=== PATIENT | male | born 1970 | race Caucasian/White ===

== ENCOUNTER 2019-06-27 17:43 | Inpatient (IN) | payer MEDICAID, OTHER ==
[2019-06-27 23:24] LABS: ADD MAN DIFF? NO
[2019-06-27 23:26] LABS: ABNORMAL IP MESSAGE 1; BASOPHIL # 0.1 10^3/ul (0.0-0.1); EOSINOPHILS # 0.1 10^3/ul (0.0-0.5); HEMATOCRIT 27.7 % (42.0-52.0); HEMOGLOBIN 8.5 g/dl (14.0-18.0); LYMPHOCYTES % 28.6 % (15.0-51.0); MEAN CORPUSCULAR HEMOGLOBIN 31.5 pg (29.0-33.0); MEAN CORPUSCULAR HGB CONC 30.7 g/dl (32.0-37.0); MEAN CORPUSCULAR VOLUME 102.6 fl (82.0-101.0); MEAN PLATELET VOLUME 10.7 fl (7.4-10.4); MONOCYTES % 15.2 % (0.0-11.0); NEUTROPHIL # 3.7 10^3/ul (1.6-7.5); NEUTROPHILS % 53.9 % (39.0-77.0); PLATELET COUNT 76 10^3/UL (140-415); POSITIVE DIFF @See below; RED CELL DISTRIBUTION WIDTH 18.6 % (11.5-14.5)
[2019-06-27 23:26] LABS: WHITE BLOOD COUNT 6.9 10^3/ul (4.8-10.8)
[2019-06-27 23:46] LABS: ALANINE AMINOTRANSFERASE 45 IU/L (13-69); ALBUMIN 3.1 g/dl (3.3-4.9); ALBUMIN/GLOBULIN RATIO 0.62; ALKALINE PHOSPHATASE 285 IU/L (42-121); ANION GAP 7 (5-13); ASPARTATE AMINO TRANSFERASE 130 IU/L (15-46); BILIRUBIN,INDIRECT 2.3 mg/dl (0-1.1); BILIRUBIN,TOTAL 2.3 mg/dl (0.2-1.3); BLOOD UREA NITROGEN 7 mg/dl (7-20); CARBON DIOXIDE 26 mmol/L (21-31); CHLORIDE 110 mmol/L (97-110); CHOL/HDL RATIO 5.1 RATIO; CHOLESTEROL 153 mg/dl (100-200); CREATININE 0.63 mg/dl (0.61-1.24); Estimated GFR > 60 mL/min (>60); GLUCOSE 124 mg/dl (70-220); HDL CHOLESTEROL 30 mg/dl (27-67); INR 1.63; LDL CHOLESTEROL,CALCULATED 105 mg/dl; LIPASE 543 U/L (23-300); POTASSIUM 3.8 mmol/L (3.5-5.1); PROTIME 19.4 Sec (11.9-14.9); PT RATIO 1.5; SODIUM 143 mmol/L (135-144); TRIGLYCERIDES 92 mg/dl (0-149)
[2019-06-27 23:50] LABS: TOTAL PROTEIN 8.1 g/dl (6.1-8.1)
[2019-06-27 23:58] LABS: B-TYPE NATRIURETIC PEPTIDE 226 PG/ML (0-125); TROPONIN-I < 0.012 ng/ml (0.000-0.120)
[2019-06-28 00:02] LABS: FREE THYROXINE INDEX (Calc) 3.61 ug/ml (0.65-3.89); T3 UPTAKE 50.9 % (23.5-40.5); T4 (THYROXINE) 7.1 ug/dl (5.5-11.0)
[2019-06-28] MEDS ORDERED: ACETAMINOPHEN 325 MG TAB PO (01:00)
[2019-06-28] MEDS ORDERED: ONDANSETRON 4 MG INJ IV ×2 (01:00→02:30)
[2019-06-28] MEDS ORDERED: ALBUTEROL/IPRATROPIUM (NEB) 3 ML AMP HHN (02:30)
[2019-06-28] MEDS ORDERED: NACL 0.9% 3 ML SYG IV (02:30)
[2019-06-28] MEDS: SOD CHLORIDE 0.9% 1,000 ML IV (03:15)
[2019-06-28] MEDS: ACETAMINOPHEN 325 MG TAB PO ×3 (03:15→18:08)
[2019-06-28 06:02] LABS: ADD MAN DIFF? NO
[2019-06-28 06:06] LABS: ABNORMAL IP MESSAGE 1; BASOPHILS % 0.8 % (0.0-2.0); EOSINOPHILS % 0.4 % (0.0-7.0); HEMATOCRIT 23.1 % (42.0-52.0); HEMOGLOBIN 7.1 g/dl (14.0-18.0); LYMPHOCYTES % 20.7 % (15.0-51.0); MEAN CORPUSCULAR HEMOGLOBIN 31.7 pg (29.0-33.0); MEAN CORPUSCULAR HGB CONC 30.7 g/dl (32.0-37.0); MEAN CORPUSCULAR VOLUME 103.1 fl (82.0-101.0); MONOCYTE # 0.8 10^3/ul (0.3-0.9); MONOCYTES % 16.4 % (0.0-11.0); NEUTROPHILS % 61.3 % (39.0-77.0); PLATELET COUNT 57 10^3/UL (140-415); POSITIVE DIFF @See below; RED BLOOD COUNT 2.24 10^6/ul (4.70-6.10); RED CELL DISTRIBUTION WIDTH 18.7 % (11.5-14.5)
[2019-06-28 06:06] LABS: WHITE BLOOD COUNT 4.8 10^3/ul (4.8-10.8)
[2019-06-28] MEDS: FUROSEMIDE 20 MG TAB PO ×2 (06:11→18:08)
[2019-06-28 06:31] LABS: IRON 84 ug/dl (35-150)
[2019-06-28 06:34] LABS: ALANINE AMINOTRANSFERASE 44 IU/L (13-69); ALBUMIN 2.6 g/dl (3.3-4.9); ALKALINE PHOSPHATASE 211 IU/L (42-121); ANION GAP 6 (5-13); ASPARTATE AMINO TRANSFERASE 100 IU/L (15-46); BILIRUBIN,INDIRECT 2.9 mg/dl (0-1.1); BILIRUBIN,TOTAL 2.9 mg/dl (0.2-1.3); BLOOD UREA NITROGEN 6 mg/dl (7-20); CALCIUM 7.6 mg/dl (8.4-10.2); CARBON DIOXIDE 24 mmol/L (21-31); CHLORIDE 111 mmol/L (97-110); CHOL/HDL RATIO 5.3 RATIO; CHOLESTEROL 128 mg/dl (100-200); Estimated GFR > 60 mL/min (>60); GLUCOSE 134 mg/dl (70-220); HDL CHOLESTEROL 24 mg/dl (27-67); LDL CHOLESTEROL,CALCULATED 89 mg/dl; MAGNESIUM 1.6 mg/dl (1.7-2.5); PHOSPHORUS 3.1 mg/dl (2.5-4.9); POTASSIUM 3.5 mmol/L (3.5-5.1); SODIUM 141 mmol/L (135-144); TOTAL PROTEIN 6.9 g/dl (6.1-8.1); TRIGLYCERIDES 73 mg/dl (0-149)
[2019-06-28 06:40] LABS: CREATINE KINASE 342 IU/L (23-200)
[2019-06-28 06:41] LABS: % IRON SATURATION 29 % SAT (22-52); TOTAL IRON BINDING CAPACITY 290 ug/dl (241-421)
[2019-06-28 06:44] LABS: TROPONIN-I < 0.012 ng/ml (0.000-0.120)
[2019-06-28 06:45] LABS: CK-MB 3.25 ng/ml (0.0-2.4)
[2019-06-28 06:48] LABS: HEMOGLOBIN A1C 4.9 % (0-5.9)
[2019-06-28 07:36] LABS: FERRITIN 23.4 ng/ml (17.9-464.0)
[2019-06-28 08:06] LABS: FOLATE 10.3 ng/ml (2.8-20.0)
[2019-06-28] MEDS: SPIRONOLACTONE 25 MG TAB PO (10:24)
[2019-06-28 10:28] LABS: CREATINE KINASE 327 IU/L (23-200)
[2019-06-28 10:41] LABS: CK INDEX 1.1; TROPONIN-I < 0.012 ng/ml (0.000-0.120)
[2019-06-28 10:42] LABS: CK-MB 3.57 ng/ml (0.0-2.4)
[2019-06-28] MEDS ORDERED: hydrALAzine 20 MG INJ IV (11:30)
[2019-06-28] MEDS: MAGNESIUM SULFATE 1 GM/D5W 100 ML IVPB (11:49)
[2019-06-28 12:12] LABS: HEMATOCRIT 23.6 % (42.0-52.0); HEMOGLOBIN 7.3 g/dl (14.0-18.0)
[2019-06-28 13:50] LABS: ADD UMIC YES; UR ASCORBIC ACID NEGATIVE (NEGATIVE); UR BILIRUBIN (Dip) NEGATIVE (NEGATIVE); UR BLOOD (Dip) 2+ mg/dL (NEGATIVE); UR CLARITY CLEAR (CLEAR); UR COLOR YELLOW (YELLOW); UR GLUCOSE (Dip) NEGATIVE (NEGATIVE); UR KETONES (Dip) NEGATIVE (NEGATIVE); UR LEUKOCYTE ESTERASE (Dip) NEGATIVE Leu/ul (NEGATIVE); UR NITRITE (Dip) NEGATIVE (NEGATIVE); UR RBC 32 /HPF (0-5); UR SPECIFIC GRAVITY (Dip) 1.008 (1.003-1.030); UR TOTAL PROTEIN (Dip) NEGATIVE (NEGATIVE); UR UROBILINOGEN (Dip) 1+ mg/dL (NEGATIVE); UR WBC 1 /HPF (0-5)
[2019-06-28 21:50] LABS: IMMEDIATE SPIN CROSSMATCH 1 1
[2019-06-28] MEDS: SOD CHLORIDE 0.9% 250 ML IV* (22:10)
[2019-06-29 04:31] LABS: OCCULT BLOOD STOOL NEGATIVE (NEGATIVE)
[2019-06-29 05:27] LABS: ADD MAN DIFF? NO
[2019-06-29 05:31] LABS: WHITE BLOOD COUNT 4.8 10^3/ul (4.8-10.8)
[2019-06-29 05:31] LABS: ABNORMAL IP MESSAGE 1; BASOPHILS % 0.6 % (0.0-2.0); EOSINOPHILS # 0.1 10^3/ul (0.0-0.5); EOSINOPHILS % 1.2 % (0.0-7.0); HEMATOCRIT 26.2 % (42.0-52.0); HEMOGLOBIN 8.1 g/dl (14.0-18.0); LYMPHOCYTES # 0.9 10^3/ul (0.8-2.9); LYMPHOCYTES % 18.7 % (15.0-51.0); MEAN CORPUSCULAR HEMOGLOBIN 31.3 pg (29.0-33.0); MEAN CORPUSCULAR HGB CONC 30.9 g/dl (32.0-37.0); MEAN CORPUSCULAR VOLUME 101.2 fl (82.0-101.0); MONOCYTE # 0.8 10^3/ul (0.3-0.9); NEUTROPHILS % 63.1 % (39.0-77.0); PLATELET COUNT 57 10^3/UL (140-415); POSITIVE DIFF @See below; RED BLOOD COUNT 2.59 10^6/ul (4.70-6.10); RED CELL DISTRIBUTION WIDTH 19.1 % (11.5-14.5)
[2019-06-29] MEDS: FUROSEMIDE 20 MG TAB PO ×2 (05:56→18:00)
[2019-06-29 06:19] LABS: ANION GAP 6 (5-13); BLOOD UREA NITROGEN 7 mg/dl (7-20); CALCIUM 8.3 mg/dl (8.4-10.2); CARBON DIOXIDE 24 mmol/L (21-31); CHLORIDE 111 mmol/L (97-110); CREATININE 0.67 mg/dl (0.61-1.24); Estimated GFR > 60 mL/min (>60); GLUCOSE 110 mg/dl (70-220); MAGNESIUM 1.7 mg/dl (1.7-2.5); POTASSIUM 3.7 mmol/L (3.5-5.1); SODIUM 141 mmol/L (135-144)
[2019-06-29] MEDS: SPIRONOLACTONE 25 MG TAB PO (08:35)
[2019-06-30] MEDS: FUROSEMIDE 20 MG TAB PO (06:18)
[2019-06-30] MEDS: SPIRONOLACTONE 25 MG TAB PO (09:15)
== END 2019-06-30 15:25 | disposition home or self-care (01) | DRG 434 ==
LOC: E/R 17:43 → 6WM 06-28 00:55
PROC: 30233N1 Transfusion of Nonautologous Red Blood Cells into Peripheral Vein, Percutaneous Approach (ICD-10-PCS; principal; 2019-06-28)
DX: K70.31 Alcoholic cirrhosis of liver with ascites (principal); R00.2 Palpitations; I10 Essential (primary) hypertension; R07.9 Chest pain, unspecified; D64.9 Anemia, unspecified; D69.6 Thrombocytopenia, unspecified; F10.10 Alcohol abuse, uncomplicated; R16.1 Splenomegaly, not elsewhere classified
CPT/HCPCS: 36415; 36430; 71045; 76700; 80048; 80053; 80061; 81001; 82270; 82550; 82553; 82607; 82728; 82746; 83036; 83540; 83690; 83735; 83880; 84100; 84436; 84443; 84479; 84484; 85014; 85018; 85025; 85610; 85730; 86850; 86900; 86901; 86920; 87040-91; 87086; 93005; 93306; 99285-25